=== PATIENT | female | born 1980 ===

== ENCOUNTER 2019-06-12 09:16 | Day surgery (SDC) | payer OTHER ==
[2019-06-11 10:05] VITALS: BMI 47.8
[2019-06-12] MEDS ORDERED: Fentanyl 100 MCG/2 ML VIAL ONE ×2 (11:18→15:42)
[2019-06-12] MEDS ORDERED: Midazolam HCl 2 mg/2 ml Vial ONE (11:18)
[2019-06-12 11:25] LABS: Anion Gap 12 mmol/L (10-20); BUN (Urea Nitrogen) 14 mg/dL (7.0-18.7); Calc. Creatinine Clearance 227 mL/min (70-130); Calcium 9.2 mg/dL (7.8-10.44); Carbon Dioxide 23 mmol/L (22-29); Chloride 107 mmol/L (98-107); Estimated GFR-MDRD 78; Glucose 86 mg/dL (70-105); Sodium 138 mmol/L (136-145)
[2019-06-12] MEDS ORDERED: Rocuronium Bromide 10 MG/ML (10ML VIAL) ONE (11:50)
[2019-06-12] MEDS ORDERED: Ondansetron PF 4 MG/2 ML Vial ONE (11:50)
[2019-06-12] MEDS ORDERED: PROPOFOL 200 MG/20 ML VIAL ONE (11:50)
[2019-06-12] MEDS ORDERED: EPHEDRINE 25 MG/5 ML SYRINGE ONE (11:50)
[2019-06-12] MEDS ORDERED: diphenhydrAMINE 50 MG/ML VIAL ONE (11:50)
[2019-06-12] MEDS ORDERED: Esmolol 100 MG/10 ML VIAL ONE (11:50)
[2019-06-12] MEDS ORDERED: Glycopyrrolate 0.2 MG/ML 5 ML SYRINGE ONE (11:50)
[2019-06-12] MEDS ORDERED: Ketorolac Tromethamine 30 MG/ML VIAL ONE (11:50)
[2019-06-12] MEDS ORDERED: Dexamethasone 20 MG/5 ML VIAL ONE (11:50)
[2019-06-12] MEDS ORDERED: Bupivacaine 0.25% HCL 30 ML VIAL ONE (13:59)
[2019-06-12] MEDS ORDERED: Clindamycin/D5W 900 mg/50 ml Premix Bag ONE (14:34)
[2019-06-12] MEDS ORDERED: Levofloxacin 500 mg/D5W 100 ml Premix Bag ONE (14:34)
[2019-06-12] MEDS ORDERED: Promethazine HCl 25 MG/ML VIAL IM PRN ×2 (14:46→15:03)
[2019-06-12] MEDS ORDERED: Ondansetron PF 4 MG/2 ML Vial IVP PRN (14:46)
[2019-06-12] MEDS ORDERED: Morphine 2 MG/ML SYRINGE SLOW IVP PRN (14:46)
[2019-06-12] MEDS ORDERED: HYDROcodone/Acetaminophen 10/325 mg Tablet PO PRN (14:46)
[2019-06-12] MEDS ORDERED: Simethicone Chewable 80 MG TAB PO PRN (14:46)
[2019-06-12] MEDS ORDERED: diphenhydrAMINE 25 MG CAP PO PRN (14:46)
[2019-06-12] MEDS ORDERED: Bisacodyl 10 MG SUPP PR PRN (14:46)
[2019-06-12] MEDS ORDERED: Zolpidem Tartrate 5 MG TAB PO PRN (14:46)
[2019-06-12] MEDS ORDERED: Acetaminophen 325 MG TAB PO PRN (14:46)
[2019-06-12] MEDS ORDERED: HYDROmorphone 2 MG/ML VIAL SLOW IVP PRN (15:03)
[2019-06-12] MEDS ORDERED: Meperidine HCl/PF 25 MG/ML VIAL SLOW IVP PRN (15:03)
[2019-06-12] MEDS ORDERED: Promethazine HCl 25 MG/ML VIAL SLOW IVP PRN (15:03)
[2019-06-12] MEDS ORDERED: PACU-Morphine 4MG/ML VIAL SLOW IVP PRN (15:03)
[2019-06-12] MEDS ORDERED: Ondansetron HCl/PF 4 MG/2 ML Vial IVP PRN (15:03)
[2019-06-12] MEDS ORDERED: Tranexamic Acid 1,000 MG/10 ML VIAL ONE (15:11)
[2019-06-12] MEDS: Lactated Ringer's 1,000 ML IV SCH (18:16)
[2019-06-12 18:19] LABS: Hemoglobin 12.7 g/dL (12.0-16.0)
[2019-06-12] MEDS: Ibuprofen 800 MG TAB PO SCH (21:41)
[2019-06-12] MEDS: Tranexamic Acid 650 MG TAB PO SCH (21:41)
[2019-06-13] MEDS: HYDROcodone/Acetaminophen 10/325 mg Tablet PO PRN ×2 (00:05→07:21)
[2019-06-13 00:30] LABS: Hemoglobin 11.8 g/dL (12.0-16.0)
[2019-06-13] MEDS: Ibuprofen 800 MG TAB PO SCH (05:51)
[2019-06-13 06:02] LABS: Hemoglobin 11.2 g/dL (12.0-16.0); Mean Corpuscular HGB CONC 33.5 g/dL (32.0-36.0); Mean Corpuscular Hemoglobin 30.1 pg (27.0-31.0); Mean Corpuscular Volume 89.8 fL (78.0-98.0); Mean Platelet Volume 7.4 fL (7.4-10.4); Platelet Count 268 thou/uL (130-400); RBC Distribution Width 12.2 % (11.5-14.5); Red Blood Cell (RBC) Count 3.71 mill/uL (4.20-5.40); White Blood Cell (WBC) Count 8.6 thou/uL (4.8-10.8)
[2019-06-13] MEDS: Lactated Ringer's 1,000 ML IV SCH (07:38)
[2019-06-13 08:20] VITALS: BP 106/53; TEMP 99.2
[2019-06-13] MEDS: Tranexamic Acid 650 MG TAB PO SCH (08:38)
--- NOTE | 2019-06-16 01:57 | OP ---
DATE OF PROCEDURE: 06/12/2019 PREOPERATIVE DIAGNOSES: 1. Prolapsing fibroid. 2. Menorrhagia. POSTOPERATIVE DIAGNOSES: 1. Cervical fibroid. 2. Cervical perforation. PROCEDURES PERFORMED: Vaginal myomectomy, diagnostic hysteroscopy and dilation and curettage, and diagnostic laparoscopy. ANESTHESIA: General endotracheal. MORTARMAN SURGEON: Pedro Pablo Huston, MS-3 ESTIMATED BLOOD LOSS: 100 mL. IVF: 1 L of crystalloid. URINE OUTPUT: 300 mL of clear urine. COMPLICATIONS: Cervical perforation. PATHOLOGY: 1. Cervical fibroid. 2. Endometrial curettings. DRAINS: None. FINDINGS: Extremely fibrotic, fibroid appearing, fused and adherent to the right cervical canal that reached up into the internal os. It did not go into the uterine endometrium. This was resected off the cervix that resulted in perforation of the cervix into the retroperitoneum. There was no active bleeding following the procedure and on laparoscopic examination, there was stable appearance of retroperitoneal fluid collection, mainly saline-appearing fluid. After 10 minutes of observation, there was no active bleeding from the cervix. There was a 16-[place] Leiva placed in the cervix at the level of the perforation to tamponade as well as a vaginal packing placed. The uterus sounded to 9 cm and was within normal limits with follicular-appearing endometrium. The patient's vital signs were stable throughout the procedure, and she was sent to the floor for further monitoring. DESCRIPTION OF PROCEDURE: The patient was taken to the operating room, where general anesthesia was obtained without difficulty. The patient was prepped and draped in a sterile fashion in the dorsal lithotomy position. The bladder was catheterized with a red rubber, and a speculum was placed in the vagina. The anterior lip of the cervix was grasped with a single-tooth tenaculum. The prolapsing fibroid was visualized and grasped with a tenaculum. At that time, it was noted that the fibroid was fibrosed to the right cervical external os, and a plane was made with Major scissors and sharp dissection of the fibroid off the right cervix was performed with the Major scissors. It was extremely fibrotic and calcified; however, dissection was possible as long as sharp dissection was performed. The speculum was traded out for a weighted speculum as well as Covert's and right angle retractors for adequate visualization, and continued sharp dissection of the fibroid off the right side of the cervix was performed and additional traction was placed with a Danis on the fibroid. Bleeding was minimal. The sharp dissection was taken around, and palpation was performed intermittently to assess the extent of the fibroid to determine if the fibroid came off the uterine endometrium versus endocervical canal. It was felt to originate in the endocervix. There was not a clear plane as normal myomectomies were performed, but continued sharp dissection was performed with the Major scissors, pulling traction and getting visualization with the retractors until the fibroid was completely transected off and this was sent for final pathology. There were no concerning features other than calcifications of this mass. There was some bleeding. It was not excessive. At that point, decision was made to attempt closure of this endocervical canal mass with suture. 2-0 [address] was used to place stitches. However, visualization was difficult as this was about 3 cm high in the endocervical canal despite adequate retraction. Several sutures were placed, and hemostasis somewhat improved but there was still active bleeding. At that time, decision was made to place FloSeal over the active bleeding site as well as the Leiva catheter bulb. Hysteroscope was inserted. This was following uterine sound. Initially, the uterine sound went to 16 cm and this was felt to be abnormal, so hysteroscope was placed and visualization of the retroperitoneum was had including some vasculature. There was not an excessive amount of bleeding at this time. The endocervical canal was identified, and the uterus was entered into with the hysteroscope and visualized including bilateral tubal ostia. There were no further intrauterine masses noted. The mass had been resected in total. Sharp curettage was taken to the uterus to ensure no abnormal pathology and this was ensured by correct sounding upon palpation with the uterine curette. This was sent for final pathology. At that time, the Leiva balloon was placed with 30 mL as well as the FloSeal, and attention was turned to the abdomen. 0.5% Marcaine was infiltrated into the umbilicus, and a 5 mm skin incision was made. The Veress needle was placed into the abdomen noting opening pressure of 6 mmHg, and pneumoperitoneum was obtained. The 5-mm trocar was placed into the abdomen along with the camera, and Trendelenburg was obtained. There was some bradycardia during that procedure, and pneumoperitoneum was released and resolved with anesthetic measures. Pneumoperitoneum was re-established and the pelvis was visualized, noting some saline in the retroperitoneum. There were some blood-appearing areas lower down in the pelvis; however, these were not expanding. This area was observed for 10 minutes and did not seem to be expanding. The hysteroscopic fluid deficit for the case was 650 mL, which was appropriate and there was no excessive bleeding vaginally. The uterus and ovarian structures were examined and noted to be within normal limits, and all instruments were removed from the abdomen and pneumoperitoneum was released. All skin incision was closed with 4-0 Monocryl in subcuticular fashion. At that time, the vaginal area was examined and noted to have not an excessive amount of bleeding and decision was made to place a Leiva catheter as well as leave the cervical catheter in there for 4 hours following surgery to tamponade any active bleeding and watch the patient on the floor. The patient was given Levaquin and Flagyl as intraop antibiotic prophylaxis as well as started on TXA to decrease any bleeding risk. The patient tolerated the procedure well. Sponge, lap, and needle counts were correct x2. The patient was taken to recovery room in stable condition. Job ID: [id number]
== END 2019-06-13 09:30 | disposition home or self-care (01) ==
LOC: EEVIPCON 09:16 → SDC 09:16 → 3SE 14:50 → EDSTATUS 14:54 → SDC 06-13 09:30
PROVIDERS: ATTEND Student in an Organized Health Care Education/Training Program
PROC: 0UJD4ZZ Inspection of Uterus and Cervix, Percutaneous Endoscopic Approach (ICD-10-PCS; principal; 2019-06-13)
PROC: 0UJ34ZZ Inspection of Ovary, Percutaneous Endoscopic Approach (ICD-10-PCS; principal; 2019-06-13)
PROC: 0UB97ZZ Excision of Uterus, Via Natural or Artificial Opening (ICD-10-PCS; principal; 2019-06-13)
PROC: 0UDB8ZX Extraction of Endometrium, Via Natural or Artificial Opening Endoscopic, Diagnostic (ICD-10-PCS; principal; 2019-06-13)
DX: D25.0 Submucous leiomyoma of uterus (principal); N88.8 Other specified noninflammatory disorders of cervix uteri; E66.01 Morbid (severe) obesity due to excess calories; Z68.42 Body mass index [BMI] 45.0-49.9, adult; Z88.0 Allergy status to penicillin; Z88.1 Allergy status to other antibiotic agents; Z88.2 Allergy status to sulfonamides; Z98.891 History of uterine scar from previous surgery
CPT/HCPCS: 36415; 80048; 85014; 85018; 85027; 88305; J1100; J1200; J1885; J1956; J2250; J2405; J2704; J3010; J3490; S0020